=== PATIENT | female | born 1985 | race Hispanic/Latino ===

== ENCOUNTER 2021-04-10 09:30 | Emergency (ER) | payer MEDICAID, OTHER ==
[~2021-04-10] VITALS: Ht 165.1 cm; Wt 97.5 kg
[2021-04-10 10:06] LABS: BASOPHILS % (AUTO) 0.8 % (0.0-5.0); EOSINOPHILS % (AUTO) 2.4 % (0.0-8.0); HEMATOCRIT 35.6 % (36-48); LYMPHOCYTES % (AUTO) 42.5 % (21.0-51.0); MEAN CORPUSCULAR HEMOGLOBIN 27.1 pg (27.0-33.0); MEAN CORPUSCULAR HGB CONC 31.2 g/dL (32.0-36.0); MONOCYTES % (AUTO) 7.2 % (3.0-13.0); NEUTROPHILS % (AUTO) 46.8 % (40.0-77.0); PLATELET COUNT (AUTO) 463 K/uL (130-400); RED BLOOD CELL COUNT(AUTO) 4.09 MIL/uL (4.00-5.50); RED CELL DISTRIBUTION WIDTH 18.5 % (11.0-15.5); WHITE BLOOD COUNT (AUTO) 11.8 K/uL (4.8-10.8)
[2021-04-10 10:15] LABS: CREATININE 0.8 mg/dL (0.5-1.5); POTASSIUM 3.8 mmol/L (3.5-5.1)
[2021-04-10 10:20] LABS: ALBUMIN 3.2 g/dL (3.5-5.0); BILIRUBIN,TOTAL 0.1 mg/dL (0.2-1.0); TOTAL PROTEIN, SERUM 7.3 g/dL (6.0-8.3)
[2021-04-10 10:26] LABS: APPEARANCE,URINE Clear (CLEAR); BILIRUBIN,URINE Negative (NEGATIVE); COLOR,URINE Yellow (YELLOW); GLUCOSE, URINE (UA) Negative (NEGATIVE); KETONES,URINE Trace mg/dL (NEGATIVE); LEUKOCYTE ESTERASE ,URINE Trace (NEGATIVE); NITRATE,URINE Negative (NEGATIVE); OCCULT BLOOD,URINE Negative (NEGATIVE); PH,URINE 6.5 (5.0-8.0); PROTEIN,URINE Trace mg/dL (NEGATIVE)
[2021-04-10] MEDS ORDERED: MEPERIDINE-PF 25 MG/ML SYG IVP ONE (10:30)
[2021-04-10] MEDS ORDERED: SOLU-MEDROL 125MG VIAL IVP ONE (10:30)
[2021-04-10] MEDS ORDERED: BENZONATATE 100 MG CAPSULE PO ONE (10:30)
[2021-04-10] MEDS ORDERED: ONDANSETRON 4MG INJ IVP ONE (10:30)
[2021-04-10] MEDS ORDERED: KETOROLAC 30MG VIAL (30MG/ML) IV ONE (10:30)
[2021-04-10 10:32] LABS: HCG,QUAL RESULT NEGATIVE (NEGATIVE)
[2021-04-10 11:09] LABS: RBC,URINE None Seen /HPF (0-1); WBC,URINE 0-1 /HPF (0-1)
[2021-04-10 11:10] LABS: BACTERIA,URINE Few /HPF (None Seen); MUCUS,URINE Moderate LPF (None Seen); SQUAMOUS EPITHELIAL CELL,UR Few /HPF (0-2)
[2021-04-10 11:11] LABS: CALCIUM OXALATE CRYSTALS,UR Few /LPF (None Seen)
[2021-04-10] MEDS ORDERED: CARISOPRODOL 350 MG TABLET PO ONE (13:30)
[2021-04-10] MEDS ORDERED: GUAIFENESIN-CODEINE 5 ML SYRUP PO ONE (14:30)
[2021-04-10] MEDS ORDERED: ALBUTEROL 0.083% 2.5 MG/3 ML INH IH ONE (14:30)
[2021-04-10] MEDS ORDERED: GUAIFCF5L PO (14:53)
[2021-04-10] MEDS ORDERED: BENZ-17 PO (14:53)
[2021-04-10] MEDS ORDERED: PRED20TA3 PO (14:53)
[2021-04-10] MEDS ORDERED: CARI350T PO (14:55)
[2021-04-10 15:47] VITALS: BP 118/87
== END 2021-04-10 15:48 | disposition home or self-care (01) ==
LOC: EDH 09:30
DX: J20.8 Acute bronchitis due to other specified organisms (principal); M79.10 Myalgia, unspecified site; R10.9 Unspecified abdominal pain; Z20.822 Contact with and (suspected) exposure to COVID-19; Z79.1 Long term (current) use of non-steroidal anti-inflammatories (NSAID); Z79.52 Long term (current) use of systemic steroids; Z79.899 Other long term (current) drug therapy; Z87.440 Personal history of urinary (tract) infections
CPT/HCPCS: 36415; 74176; 80053; 81001; 81025; 85025; 87635; 87804 ×2; 87880; 94640; 96374; 96375; 99284; C9803; J1885; J2175; J2405; J2930